=== PATIENT | male | born 1975 | race African-American/Black ===

== ENCOUNTER 2022-12-11 01:52 | Emergency (ER) | payer MEDICAID ==
[~2022-12-11] VITALS: Ht 177.8 cm; Wt 70.3 kg
--- NOTE | 2022-12-11 01:56 | NUR ---
[id number] C/O +SI [employer] WILL PUT ON HOLD. PT A/OX3. TOLERATING R/A WELL WITH NO RESP DISTRESS. PT CHANGED IN GOWN, BELONGINGS COLLECTED PLACED IN LOCKER, WANDED BY SECURITY. SAFETY MEASURES IN PLACE.
[2022-12-11 02:01] VITALS: BP 135/88
--- NOTE | 2022-12-11 02:02 | NUR ---
COVID SWAB DONE AND SENT TO LAB
--- NOTE | 2022-12-11 02:03 | NUR ---
URINE COLLECTED AND SENT TO LAB
[2022-12-11 03:44] LABS: ALANINE AMINOTRANSFERASE 25 U/L (12-78); ALBUMIN 3.6 g/dL (3.4-5.0); ALCOHOL, BLOOD < 3 mg/dL (0-0); ALKALINE PHOSPHATASE 88 U/L (46-116); ASPARTATE AMINOTRANSFERASE 17 U/L (15-37); BASOPHILS % (AUTO) 1.2 % (0.0-2.0); BILIRUBIN,DIRECT 0.2 mg/dL (0.0-0.2); BILIRUBIN,TOTAL 0.8 mg/dL (0.2-1.0); CALCIUM, SERUM 8.8 mg/dL (8.5-10.1); CARBON DIOXIDE 31 mmol/L (21-32); CHLORIDE 100 mmol/L (98-107); CREATININE 0.8 mg/dL (0.6-1.3); EOSINOPHILS % (AUTO) 1.9 % (0.0-6.0); GLUCOSE 97 mg/dL (74-106); HEMATOCRIT 37 % (39-51); HEMOGLOBIN 11.9 g/dL (13.5-17.5); LYMPHOCYTES # (AUTO) 0.7 K/uL (0.8-4.8); LYMPHOCYTES % (AUTO) 25.2 % (20.0-44.0); MEAN CORPUSCULAR HGB CONC 32 g/dl (31.0-36.0); MEAN CORPUSCULAR VOLUME 96 fL (80-96); MONOCYTES # (AUTO) 0.4 K/uL (0.1-1.30); MONOCYTES % (AUTO) 12.3 % (2.0-12.0); NEUTROPHILS # (AUTO) 1.7 K/uL (1.8-8.9); NEUTROPHILS % (AUTO) 59.4 % (43.0-81.0); PLATELET COUNT (AUTO) 161 K/uL (150-450); POTASSIUM 3.6 mmol/L (3.5-5.1); RED BLOOD CELL COUNT(AUTO) 3.84 MIL/uL (4.5-6.0); SODIUM SERUM 135 mmol/L (136-145); TOTAL PROTEIN, SERUM 7.1 g/dL (6.4-8.2); UREA NITROGEN, BLOOD 6 mg/dL (7-18); WHITE BLOOD COUNT (AUTO) 2.9 K/uL (4.3-11.0)
[2022-12-11 03:45] LABS: BILIRUBIN,URINE NEGATIVE (NEGATIVE); COLOR,URINE YELLOW (YELLOW); LEUKOCYTE ESTERASE ,URINE NEGATIVE (NEGATIVE); NITRITE, URINE NEGATIVE (NEGATIVE); PROTEIN,URINE NEGATIVE (NEGATIVE); UGLUCOSE NEGATIVE (NEGATIVE); UROBILINOGEN,URINE 0.2 EU/dL (0.2)
[2022-12-11 03:45] LABS: ACETAMINOPHEN 0 ug/ml (10-30)
--- NOTE | 2022-12-11 05:27 | NUR ---
SEEN AND EVALUATED BY MOMO JULIAN FROM CRISIS TEAM
[2022-12-11] MEDS ORDERED: QUETIAPINE FUMARATE 100 MG TABLET ONE (05:38)
[2022-12-11] MEDS ORDERED: OLANZAPINE 5 MG TABLET ONE (05:38)
[2022-12-11] MEDS ORDERED: MIRTAZAPINE 15 MG TABLET ONE (05:38)
[2022-12-11] MEDS ORDERED: QUETIAPINE FUMARATE 100 MG TABLET PO SCH (06:00)
[2022-12-11] MEDS ORDERED: MIRTAZAPINE 15 MG TABLET PO ONE (06:00)
[2022-12-11] MEDS ORDERED: OLANZAPINE 5 MG TABLET PO ONE (06:00)
[2022-12-11] MEDS ORDERED: OLANZAPINE 10 MG TABLET PO ONE (06:35)
--- NOTE | 2022-12-11 08:16 | NUR ---
COVID SWAB COLLECTED, URINE SAMPLE COLLECTED SENT TO LAB.
--- NOTE | 2022-12-11 08:19 | NUR ---
VERENICE MEJIA [phone] [facility] BUILDING I WILL ASSIGN ROOM JACKIE [phone] [id number] [place] [id number]
--- NOTE | 2022-12-11 08:24 | NUR ---
[facility] CALLED FOR TRANSPORT ETA 45-60 MINS PER ANDERSON.
--- NOTE | 2022-12-11 09:07 | NUR ---
REPORT GIVEN TO VERENICE FOR DINAH
--- NOTE | 2022-12-11 09:29 | NUR ---
EMT AT BEDSIDE TO PICKUP PT; ENDORSEMENT GIVEN.
--- NOTE | 2022-12-11 09:35 | NUR ---
ALL BELONGINGS GIVEN TO PT/EMT
== END 2022-12-11 10:16 ==
LOC: ER 01:54
DX: R45.851 Suicidal ideations (principal); F20.9 Schizophrenia, unspecified; Z59.00 Homelessness unspecified; Z20.822 Contact with and (suspected) exposure to COVID-19; D64.9 Anemia, unspecified; D72.819 Decreased white blood cell count, unspecified
CPT/HCPCS: 99285; 85025; 80048; 80076; 81003; 36415; 87426; 80143; 80320; 80307; C9803; G0480